=== PATIENT | female | born 1940 | race Caucasian/White ===

== ENCOUNTER → 2016-09-08 | Outpatient (CLI) | payer MEDICARE | END | disposition home or self-care (01) | LOC: PCVCIMAG 13:18 | PROVIDERS: ATTEND Internal Medicine Cardiovascular Disease | DX: I65.23 Occlusion and stenosis of bilateral carotid arteries (principal); E78.5 Hyperlipidemia, unspecified; I10 Essential (primary) hypertension; E78.1 Pure hyperglyceridemia; Z82.49 Family history of ischemic heart disease and other diseases of the circulatory system | CPT/HCPCS: 80061; 93005; 93880; G0463 ==

== ENCOUNTER → 2017-05-11 | Outpatient (CLI) | payer MEDICARE | END | disposition home or self-care (01) | LOC: PCVCCLINIC 11:25 | PROVIDERS: ATTEND Internal Medicine Cardiovascular Disease | DX: I10 Essential (primary) hypertension (principal); E11.9 Type 2 diabetes mellitus without complications; E78.00 Pure hypercholesterolemia, unspecified; E78.1 Pure hyperglyceridemia; R00.1 Bradycardia, unspecified; Z79.899 Other long term (current) drug therapy; Z79.84 Long term (current) use of oral hypoglycemic drugs | CPT/HCPCS: 80061; 93005; G0463 ==

== ENCOUNTER → 2017-12-21 | Outpatient (CLI) | payer MEDICARE | END | disposition home or self-care (01) | LOC: PCVCCLINIC 13:18 | DX: E78.00 Pure hypercholesterolemia, unspecified (principal); E11.9 Type 2 diabetes mellitus without complications; I10 Essential (primary) hypertension; Z82.49 Family history of ischemic heart disease and other diseases of the circulatory system; Z79.899 Other long term (current) drug therapy | CPT/HCPCS: 93005; G0463 ==

== ENCOUNTER → 2018-09-27 | Outpatient (CLI) | payer MEDICARE ==
--- NOTE | 2018-09-27 12:55 | PCVCIMAG ---
APPROVED REPORT Study performed: 09/27/2018 10:39:41 Exam: Stress Echocardiogram Indication: Hyperlipidemia, Hypertension Patient Location: Echo lab Stress Nurse: Thais Pena RN Status: routine Ht: 5 ft 5 in HR: 65 bpm BP: 158/60 mmHg Rhythm: NSR Medical History Medical History: Diabetes Procedure The patient underwent an Exercise Stress Test using the Kamran Protocol. Blood pressure, heart rate, and EKG were monitored. An Echocardiogram was performed by certified ophthalmic medical technician in four stages in quad fashion. At peak stress, four selected images were obtained and placed side by side with resting images for comparison. Stress Test Details Stress Test: Exercise stress testing was performed using a Kamran protocol. HR Resting HR: 65 bpmMax Heart Rate (APMHR): 143 bpm Max HR Achieved: 130 bpmTarget HR (85% APMHR): 121 bpm % of APMHR: 90 Recovery HR: 80 bpm HR response to stress: Normal HR response to stress BP Resting BP: 158/60 mmHg Max BP: 180/64 mmHg Recovery BP: 168/78 mmHg BP response to stress: Normal blood pressure response to stress. ECG Resting ECG: Sinus Rhythm Stress ECG: Sinus Rhythm Recovery ECG: Sinus Rhythm Clinical Reason for Termination: Maximal effort Exercise duration: 6 min 30 sec Highest Stage Achieved: Stage 3: 3.4 mph at 14% grade. Exercise capacity: 8.50 METs Overall Exercise Capacity for Age: Average Stress ECG Conclusion ECG: Non-ischemic Clinical: Non-ischemic Pre-Stress Echo The resting Echocardiogram showed normal left ventricular contractility with an estimated Ejection Fraction of about >55%. Normal wall motion in all segments on baseline images. Post-Stress Echo The stress Echocardiogram showed normal left ventricular contractility with an estimated Ejection Fraction of about 60-65%. Normal augmentation of wall motion in all segments on post stress images. Clinical No clinical or ECG evidence for ischemia. Conclusion Clinical Response: Non-ischemic Exercise Capacity: Average Stress ECG Response: Non-ischemic Stress Echo Images: Non-ischemic The left ventricle is normal in size and wall thickness in both the rest and stress images. Other Information Study Quality: Good <Conclusion> The left ventricle is normal in size and wall thickness in both the rest and stress images.
== END | disposition home or self-care (01) ==
LOC: PCVCIMAG 10:36
PROVIDERS: ATTEND Internal Medicine Cardiovascular Disease
DX: I10 Essential (primary) hypertension (principal); E11.9 Type 2 diabetes mellitus without complications; E78.00 Pure hypercholesterolemia, unspecified; E78.5 Hyperlipidemia, unspecified; Z82.49 Family history of ischemic heart disease and other diseases of the circulatory system
CPT/HCPCS: 93325; 93351